=== PATIENT | female | born 1980 | race Caucasian/White ===

== ENCOUNTER 2020-02-15 12:01 | Observation (INO) | payer MEDICAID ==
[~2020-02-15] VITALS: Ht 165.1 cm; Wt 76.2 kg
[2020-02-15 17:11] VITALS: BP_SYST 122
== END 2020-02-15 14:00 | disposition home or self-care (01) ==
LOC: SPU 12:01
PROVIDERS: ADMIT Obstetrics & Gynecology; ATTEND Obstetrics & Gynecology
DX: O42.92 Full-term premature rupture of membranes, unspecified as to length of time between rupture and onset of labor (principal); O62.9 Abnormality of forces of labor, unspecified; Z3A.37 37 weeks gestation of pregnancy
CPT/HCPCS: G0378